=== PATIENT | male | born 1930 | race Caucasian/White ===

== ENCOUNTER 2019-01-05 10:58 | Inpatient (IN) | payer MEDICARE, OTHER ==
[~2019-01-05] VITALS: Ht 172.7 cm; Wt 85.4 kg
[2019-01-05 11:48] LABS: BASOPHILS ABSOLUTE AUTO 0.02 K/mm3 (0.00-0.23); BASOPHILS PERCENT AUTO 0 % (0-2); EOSINOPHILS ABSOLUTE AUTO 0.06 K/mm3 (0.00-0.68); EOSINOPHILS PERCENT AUTO 1 % (0-6); Hematocrit 29.2 % (37.0-53.0); Hemoglobin 8.7 g/dL (13.5-17.5); IMMATURE GRAN ABSOLUTE AUTO 0.03 K/mm3 (0.00-0.10); IMMATURE GRAN PERCENT AUTO 1 % (0-1); LYMPHOCYTES ABSOLUTE AUTO 1.54 K/mm3 (0.84-5.20); LYMPHOCYTES PERCENT AUTO 24 % (21-46); MONOCYTES ABSOLUTE AUTO 0.43 K/mm3 (0.16-1.47); MONOCYTES PERCENT AUTO 7 % (4-13); Mean Corpuscular HGB 25.1 pg (26.0-34.0); Mean Corpuscular HGB Conc 29.8 g/dL (31.5-36.5); Mean Corpuscular Volume 84 fL (80-100); Mean Platelet Volume 10.1 fL (9.1-12.4); NEUTROPHILS ABSOLUTE AUTO 4.34 K/mm3 (1.96-9.15); NEUTROPHILS PERCENT AUTO 68 % (41-73); Platelet Count 227 K/mm3 (150-400); RDW Coefficient Variation 16.2 % (11.7-14.2); RDW Standard Deviation 49.3 fL (35.1-46.3); Red Blood Cell Count 3.46 M/mm3 (4.30-5.90); White Blood Cell Count 6.42 K/mm3 (4.00-11.30)
[2019-01-05 12:11] LABS: Alanine Aminotransfer (ALT/SGP 14 U/L (12-78); Albumin, Blood 3.1 g/dL (3.4-5.0); Albumin/Globulin Ratio 0.7 (0.8-1.8); Alk Phos 111 U/L (50-136); Anion Gap 6 mmol/L (6-16); Aspartate Aminotrans (AST/SGOT 15 U/L (12-37); Bilirubin, Total 0.5 mg/dL (0.1-1.0); Blood Urea Nitrogen 20 mg/dL (8-24); Bun/Creatinine Ratio 18.9 (12.0-20.0); CO2, Blood 31 mmol/L (21-32); Calcium, Blood 8.5 mg/dL (8.5-10.1); Chloride, Blood 100 mmol/L (98-108); Creatinine, Blood 1.06 mg/dL (0.60-1.20); Globulin, Blood 4.5 g/dL (2.2-4.0); Glomerular Filtration Rate >60 (60-); Glucose, Blood 189 mg/dL (70-99); Potassium, Blood 3.9 mmol/L (3.5-5.5); Sodium, Blood 137 mmol/L (136-145); Total Protein, Blood 7.6 g/dL (6.4-8.2); Troponin I 0.041 ng/mL (0.000-0.040)
[2019-01-05] MEDS ORDERED: Prinivil10 MG PO (12:12)
[2019-01-05] MEDS ORDERED: ALBU90OI INH (14:05)
[2019-01-05] MEDS ORDERED: TEMA30 PO (14:05)
[2019-01-05] MEDS ORDERED: PREG75 PO (14:06)
[2019-01-05] MEDS ORDERED: TRAM50 PO (14:06)
[2019-01-05] MEDS ORDERED: GLIP10 PO (14:06)
[2019-01-05] MEDS ORDERED: Metformin HCl1000 MG PO (14:06)
[2019-01-05] MEDS ORDERED: PRAV20 PO (14:08)
[2019-01-05] MEDS ORDERED: FURO40 PO (14:09)
[2019-01-05] MEDS ORDERED: Aspirin EC81 MG PO (14:10)
[2019-01-05] MEDS ORDERED: FLUT1DIS5 INH (14:11)
[2019-01-05 16:00] LABS: Percent Saturation 4.7 % (20.0-50.0)
[2019-01-05] MEDS ORDERED: ASCO500 PO (17:11)
[2019-01-05] MEDS ORDERED: LISI5 PO (17:12)
--- NOTE | 2019-01-05 18:45 | NUR ---
ADMISSION NOTE PATIENT ARRIVED TO FLOOR AT 1630, AMBULATED TO BED. PT IS ALERT AND ORIENTED. HE HAS +3 EDEMA TO BILAT LEGS, REDNESS HAS IMPROVED. SPO2 WAS 80 WITH RA ON ARRIVAL, 3L 02 APPLIED. SPO2 IMPROVED TO 92%. PT HAS CRACKLES IN BILAT LOWER LUNG LOBES AND A SLIGHT RUB IN BILAT UPPER LOBES. PT WEARS CPAP AT NIGHT, ORDER PLACED, RT CALLED, WILL BRING CPAP AND CONT. PULSE OX TO ROOM. PT ON TELE MONITOR, HR 95 NSR. ATTEMPTED TO CONSULT CARDIAC SERVICE, DR PASTRANA STATED TO CALL [employer]IONAL ACCOUNT EXECUTIVE SPRING COILER HAND TOMORROW. LASIX GIVEN IV, PT VOIDING WELL.
[2019-01-05 20:34] LABS: Troponin I 0.029 ng/mL (0.000-0.040)
--- NOTE | 2019-01-06 04:13 | NUR ---
SHIFT SUMMARY CONT PULSE OX IS IN PLACE. PT SATS DROP QUICKLY WHEN NOT ON O2, REACHING LOW 78%. PT INSTRUCTED THAT O2 MUST BE WORN AT ALL TIMES AND PT HAS BEEN COMPLIANT WITH IT SINCE. PT ON 3L VIA NC WHEN AWAKE AND CPAP AT NIGHT. >92% ON 3L VIA NC. LS DIM c CRACKLES IN BASES. A&O X 4, INDEPENDENT IN RM. PT DIURESING WELL, OUTPUT OF 3L SO FAR. CBG AT 329 TONIGHT, ADMINISTERED 6 UNITS HUMALOG PER LOW SS. PT RESTING IN BED AT THIS TIME, CALL LT IN REACH. ABLE TO USE CALL LT APPROP AND MAKE NEEDS KNOWN. WILL CONT TO MONITOR AND PROVIDE CARE UNTIL PRESUMED BY ONCOMING RN.
[2019-01-06 05:16] LABS: Hemoglobin 8.5 g/dL (13.5-17.5); Mean Corpuscular HGB 25.3 pg (26.0-34.0); Mean Corpuscular HGB Conc 30.4 g/dL (31.5-36.5); Mean Corpuscular Volume 83 fL (80-100); Mean Platelet Volume 10.1 fL (9.1-12.4); Platelet Count 221 K/mm3 (150-400); RDW Standard Deviation 49.1 fL (35.1-46.3); Red Blood Cell Count 3.36 M/mm3 (4.30-5.90); White Blood Cell Count 3.07 K/mm3 (4.00-11.30)
[2019-01-06 05:37] LABS: Alanine Aminotransfer (ALT/SGP 15 U/L (12-78); Albumin, Blood 2.8 g/dL (3.4-5.0); Albumin/Globulin Ratio 0.6 (0.8-1.8); Alk Phos 105 U/L (50-136); Anion Gap 7 mmol/L (6-16); Aspartate Aminotrans (AST/SGOT 12 U/L (12-37); Bilirubin, Total 0.3 mg/dL (0.1-1.0); Blood Urea Nitrogen 24 mg/dL (8-24); Bun/Creatinine Ratio 23.5 (12.0-20.0); CO2, Blood 31 mmol/L (21-32); Calcium, Blood 8.2 mg/dL (8.5-10.1); Chloride, Blood 100 mmol/L (98-108); Creatinine, Blood 1.02 mg/dL (0.60-1.20); Globulin, Blood 4.5 g/dL (2.2-4.0); Glomerular Filtration Rate >60 (60-); Glucose, Blood 275 mg/dL (70-99); Potassium, Blood 3.8 mmol/L (3.5-5.5); Sodium, Blood 138 mmol/L (136-145); Total Protein, Blood 7.3 g/dL (6.4-8.2)
[2019-01-06 05:40] LABS: Troponin I 0.035 ng/mL (0.000-0.040)
--- NOTE | 2019-01-06 10:13 | NUR ---
Echocardiogram completed.
--- NOTE | 2019-01-06 12:38 | NUR ---
PT TO ANGIOGRAM & TRANSFER PATIENT TAKEN TO MILL OPERATOR HELPER VIA WHEELCHAIR, PROCEDURE CONSENT AND BLOOD CONSENT SIGNED AND IN CHART. PATIENT EXPRESSED DESIRE TO BE DNR, HOSPITALIST NOTIFIED AND CONFIRMED. CODE STATUS CHANGED IN CHART, PURPLE DNR BAND APPLIED. FAMILY PHONE NUMBERS: TAMANNA: [phone] DTR EDITA: [phone] DTR FLORES: [phone] SON GENE: [phone]
--- NOTE | 2019-01-06 14:07 | NUR ---
PT ARRIVAL. PT ARRIVED TO UNIT VIA BED. PT'S VS STABLE. GROIN SITE STABLE, NO BLEEDING IS NOTED AT THIS TIME. PER REPORT PT HAD HEMATOMA IN CARDIOGRAPHER, AREA DISTAL TO THE DRESSING IS SLIGHTLY SWOLLEN AND TENDER TO PALP. PT'S PEDAL PULSES HAD TO BE FOUND WITH DOPPLER. RIGHT PEDAL PULSE IS WEAKER THAN THE LEFT. WILL CONTINUE TO MONITOR.
--- NOTE | 2019-01-06 16:21 | NUR ---
ASSUMED CARE ASSUMED CARE OF PT APPROX 1610. RECVIED REPROT ON PT. NOTED THAT ASSESSMENT FINDINGS REMAIN UNCHANGED. GROIN SITE REMAINS C,D,I . NO S/SX OF BLEEDING, HEMATOMA, OR SWELLING. SAT PT UP AN ADDITION 15 DEGREES. PT REPORTS BACK PAIN BETTER THAN IT WAS. WILL CONTINUE TO MONITOR.
--- NOTE | 2019-01-06 19:25 | NUR ---
SHIFT SUMMARY PT PLEASANT, COOPERATIVE AND USES CALL LIGHT APPROPRIATELY. PT REMAINS A&OX4 SINCE ASSUMED CARE. ASSESSMENT FINDINGS REMAIN UNCHANGE. PT ABLE TO EAT DINNER AND TOLERATED WELL. GROIN SITE REMAINS C,D,I WITH NO S/SX OF BLEEDING, HEMATOMA OR SWELLING. PT HAD FAMILY AT BEDSDIE INTERMITENTLY. BED IN LOW POSITION, CALL LIGHT IN REACH AND PT DENIES ANY NEEDS AT THIS TIME. WILL CONTINUE TO MONITOR UNTIL HANDOFF TO NIGHTSHIFT RN.
--- NOTE | 2019-01-06 21:50 | NUR ---
PATIENT OXYGEN SATURATIONS DROPPING ON 2L TO 86-88% WHILE PATIENT FALLING ASLEEP. PLACE ON CPAP PATIENT OXYGEN SATURATION DROPPED TO 80%. PATIENT HAS NO OXYGEN BLEED IN. PLACED ON 3L OF OXYGEN PER NC AND CALLED RT WHO PLACED A 3L BLEED IN ON CPAP.
--- NOTE | 2019-01-07 06:04 | NUR ---
PATIENT TAKES CPAP OFF PERIODICALLY FOR A DRINK OF WATER AND FORGETS TO PUT IT BACK ON DROPPING OXYGEN SATURATIONS IN THE LOW 80S. PATIENT PLEASANT DENIES ANY PAIN OTHER THAN CHRONIC PAIN IN LEGS. RIGHT GROINING INTACT AND SOFT.
[2019-01-07 08:14] LABS: BASOPHILS ABSOLUTE AUTO 0.01 K/mm3 (0.00-0.23); BASOPHILS PERCENT AUTO 0 % (0-2); EOSINOPHILS PERCENT AUTO 0 % (0-6); Hematocrit 26.8 % (37.0-53.0); Hemoglobin 8.2 g/dL (13.5-17.5); IMMATURE GRAN ABSOLUTE AUTO 0.08 K/mm3 (0.00-0.10); IMMATURE GRAN PERCENT AUTO 1 % (0-1); LYMPHOCYTES ABSOLUTE AUTO 1.18 K/mm3 (0.84-5.20); LYMPHOCYTES PERCENT AUTO 9 % (21-46); MONOCYTES ABSOLUTE AUTO 0.38 K/mm3 (0.16-1.47); MONOCYTES PERCENT AUTO 3 % (4-13); Mean Corpuscular HGB 25.5 pg (26.0-34.0); Mean Corpuscular HGB Conc 30.6 g/dL (31.5-36.5); Mean Corpuscular Volume 84 fL (80-100); NEUTROPHILS PERCENT AUTO 88 % (41-73); Platelet Count 224 K/mm3 (150-400); RDW Coefficient Variation 16.1 % (11.7-14.2); RDW Standard Deviation 49.3 fL (35.1-46.3); Red Blood Cell Count 3.21 M/mm3 (4.30-5.90); White Blood Cell Count 13.95 K/mm3 (4.00-11.30)
--- NOTE | 2019-01-07 08:29 | NUR ---
ASSUMED CARE: REPORT RECEIVED FROM JAZLYN Matta RN. ASSUMED CARE OF THIS PT AT APPROX 0700. ON ASSESSMENT, THE PT IS A&O, PLEASANT & COOPERATIVE W/ CARE. HE DENIES PAIN OR NUMBNESS/TINGLING OF EXTREMITIES THIS AM. O2 BEING TITRATED DOWN W/ IMPROVED SATS WHILE AWAKE. PT CURRENTLY ON 3L NC W/ O2 SATS 97%. WILL CONTINUE TO MONITOR & UPDATE NEEDED.
[2019-01-07 08:30] LABS: Anion Gap 4 mmol/L (6-16); Blood Urea Nitrogen 31 mg/dL (8-24); Bun/Creatinine Ratio 31.3 (12.0-20.0); CO2, Blood 33 mmol/L (21-32); Chloride, Blood 101 mmol/L (98-108); Creatinine, Blood 0.99 mg/dL (0.60-1.20); Glomerular Filtration Rate >60 (60-); Glucose, Blood 251 mg/dL (70-99); Potassium, Blood 4.1 mmol/L (3.5-5.5); Sodium, Blood 138 mmol/L (136-145)
--- NOTE | 2019-01-07 09:33 | NUR ---
DR. MATHEWS: PROVIDER AT BEDSIDE TO SEE PT. IT IS DISCUSSED THAT PT's O2 REQUIREMENTS INCREASED UP TO 5L BLEED-IN TO CPAP DURING THE NIGHT. PT NORMALLY REQUIRES NO O2 AT HOME. OVERNIGHT SLEEP STUDY ORDERED. PROVIDER WOULD ALSO LIKE DR PASTRANA TO SEE THE PT TODAY SO THAT HE MAY BE D/C'd TOMORROW & SETUP W/ DR PASTRANA FOR FOLLOW-UP.
--- NOTE | 2019-01-07 14:30 | NUR ---
DR. MATHEWS: CALL TO PROVIDER, SHE HAS BEEN UPDATED ON PT's STATUS & DR MAZA's VISIT. REQUEST TO CHANGE PT TO MED FLOOR STATUS, PROVIDER IS AGREEABLE & STS TELE IS NOT NECESSARY. ORDERS PLACED.
--- NOTE | 2019-01-07 15:22 | NUR ---
TRANSFER TO MED FLOOR: REPORT HAS BEEN GIVEN TO ANNELISE Hudson RN TO ASSUME CARE. PT IS CURRENTLY COMPLETING HOME O2 EVAL & THEN MAY BE TRANSFERRED TO 342.
--- NOTE | 2019-01-07 17:27 | NUR ---
Met with patient after pulmonolgy consult to answer questions. Pretty demonstrates understanding of risks and plan of care. Review of possible plans and patient wishes for recusistation and care. He states hea and his have AD at home not sure where they are but need to update them. Pt states he does not want to be prolonged or saved. He relays a near experience during a surgery. where he tried to leave and was told to go back he had more to do. He states he can't believe he lived this long. Acknoleged his incredible expeience and great attititude about life and his commuication with his family about his wishs. As were reviewed the polst he decided that if he has treatment and for his family he wants cpr and ventilator time if he needs . he states family will be able to make the decision to stop care. At this time he feels this is best. If the paln changes he will make himself DNR.
--- NOTE | 2019-01-07 18:13 | NUR ---
SHIFT SUMMARY: PATIENT TRANSFER FROM PCU-07 THIS SHIFT. PT A&O; CALM AND COOPERATIVE WITH CARE. NO C/O PAIN SINCE ARRIVAL ON MEDICAL. HOME O2 EVAL IN PCU; PT WILL REQUIRE O2 @ 2L AT D/C. 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 RACHELL.
--- NOTE | 2019-01-08 05:08 | NUR ---
SHIFT SUMMARY: 88 Y/O MALE RESTED COMFORTABLY ALL SHIFT, SLEEP STUDY COMPLETED THIS SHIFT, DENIES PAIN OR NAUSEA, +3 PITTING EDEMA NOTED BILATEAL LOWER EXTREMITIES, DENIES DYSPNEA WHILE WEARING O2 AT 2L/M PER NASAL CANNULA, BED ALARM APPLIED, BED LOW POSITION, CALL LIGHT AT SIDE.
[2019-01-08 06:09] LABS: Anion Gap 4 mmol/L (6-16); Blood Urea Nitrogen 36 mg/dL (8-24); Bun/Creatinine Ratio 36.5 (12.0-20.0); CO2, Blood 32 mmol/L (21-32); Calcium, Blood 7.9 mg/dL (8.5-10.1); Chloride, Blood 99 mmol/L (98-108); Creatinine, Blood 0.99 mg/dL (0.60-1.20); Glomerular Filtration Rate >60 (60-); Glucose, Blood 246 mg/dL (70-99); Potassium, Blood 4.1 mmol/L (3.5-5.5); Sodium, Blood 135 mmol/L (136-145)
[2019-01-08] MEDS ORDERED: CARV6.25 PO (10:33)
[2019-01-08] MEDS ORDERED: PRED10 PO (10:41)
--- NOTE | 2019-01-08 10:49 | NUR ---
HOME O2 ORDERS FAXED TO [facility] [employer]RICAL ENGINEER NOTIFIED OF ORDERS.
--- NOTE | 2019-01-08 13:11 | NUR ---
PATIENT DISCHARGE: PATIENT DISCHARGED TO HOME/ XFR TO HOME HEALTH THIS SHIFT. MEDICATION RECONCILIATION COMPLETED; MED LIST FAXED TO [facility] ON [address]. DISCHARGE EDUCATION COMPLETED WITH PATIENT. PATIENT TRANSPORTED TO EXIT BY [facility] STAFF WITH WHEELCHAIR AT 1311. PATIENT DEPARTED [facility] VIA PRIVATE AUTO.
--- NOTE | 2019-01-08 15:17 | NUR ---
pt discharged today polst processed. pt high risk for readmission will follow up.
--- NOTE | 2019-01-09 10:53 | NUR ---
DR.KEVIN WASSERMAN, , AND 'S OFFICES ALL STATED THEY WILL CALL THE PATIENT TO SET UP APPOINTMENTS WITHIN ONE WEEK OF DISCHARGE.
--- NOTE | 2019-01-09 19:27 | NUR ---
IMM MAILED TO PATIENT
== END 2019-01-08 13:11 | disposition home health service (06) | DRG 286 ==
LOC: ER 10:58 → MEDS 10:59 → PCU 01-06 12:51 → MEDS 01-07 15:40 → ENPENDDIS 01-08 09:34 → MEDS 01-08 13:11
PROVIDERS: Emergency Medicine; Internal Medicine; Internal Medicine Critical Care Medicine; ADMIT Internal Medicine
PROC: 4A023N8 Measurement of Cardiac Sampling and Pressure, Bilateral, Percutaneous Approach (ICD-10-PCS; principal; 2019-01-06)
PROC: B201YZZ Plain Radiography of Multiple Coronary Arteries using Other Contrast (ICD-10-PCS; 2019-01-06)
PROC: B205YZZ Plain Radiography of Left Heart using Other Contrast (ICD-10-PCS; 2019-01-06)
DX: I50.33 Acute on chronic diastolic (congestive) heart failure (principal); J96.01 Acute respiratory failure with hypoxia; I27.81 Cor pulmonale (chronic); I35.0 Nonrheumatic aortic (valve) stenosis; I25.10 Atherosclerotic heart disease of native coronary artery without angina pectoris; I27.20 Pulmonary hypertension, unspecified; J84.10 Pulmonary fibrosis, unspecified; G47.33 Obstructive sleep apnea (adult) (pediatric); G25.81 Restless legs syndrome; E78.5 Hyperlipidemia, unspecified; E11.9 Type 2 diabetes mellitus without complications; G89.29 Other chronic pain; M54.9 Dorsalgia, unspecified; F17.210 Nicotine dependence, cigarettes, uncomplicated; M19.90 Unspecified osteoarthritis, unspecified site; D64.9 Anemia, unspecified; Z79.84 Long term (current) use of oral hypoglycemic drugs; Z79.82 Long term (current) use of aspirin; Z79.51 Long term (current) use of inhaled steroids; Z79.899 Other long term (current) drug therapy
CPT/HCPCS: 36415; 71046; 80048; 80053; 82550; 82728; 82947; 83540; 83550; 83735; 83880; 84484; 85025; 85027; 93005; 93010; 93306; 93460; 94640; 94660; 94760; 94761; 94762; 96372; 96374; 96375; 96376; 99285-25; C1751; C1760; C1769; C1894; G0378; J1644; J1650; J1940; J2930; J7030; J7040; J7512; Q9967

== ENCOUNTER 2019-02-01 23:11 | Observation (INO) | payer MEDICARE, OTHER ==
[~2019-02-01] VITALS: Ht 172.7 cm; Wt 78.9 kg
[~2019-02-01 23:11] MED LIST: ALBU90OI INH; ASCO500 PO; Aspirin EC81 MG PO; CARV6.25 PO; FLUT1DIS5 INH; FURO40 PO; GLIP10 PO; LISI5 PO; Metformin HCl1000 MG PO; PRAV20 PO; PRED10 PO; PREG75 PO; Prinivil10 MG PO; TEMA30 PO; TRAM50 PO
[2019-02-01 23:28] LABS: BASOPHILS ABSOLUTE AUTO 0.02 K/mm3 (0.00-0.23); BASOPHILS PERCENT AUTO 0 % (0-2); EOSINOPHILS ABSOLUTE AUTO 0.16 K/mm3 (0.00-0.68); EOSINOPHILS PERCENT AUTO 2 % (0-6); Hematocrit 27.1 % (37.0-53.0); Hemoglobin 8.1 g/dL (13.5-17.5); IMMATURE GRAN ABSOLUTE AUTO 0.02 K/mm3 (0.00-0.10); IMMATURE GRAN PERCENT AUTO 0 % (0-1); LYMPHOCYTES ABSOLUTE AUTO 1.31 K/mm3 (0.84-5.20); LYMPHOCYTES PERCENT AUTO 15 % (21-46); MONOCYTES ABSOLUTE AUTO 0.63 K/mm3 (0.16-1.47); MONOCYTES PERCENT AUTO 7 % (4-13); Mean Corpuscular HGB 25.3 pg (26.0-34.0); Mean Corpuscular HGB Conc 29.9 g/dL (31.5-36.5); Mean Corpuscular Volume 85 fL (80-100); Mean Platelet Volume 9.6 fL (9.1-12.4); NEUTROPHILS ABSOLUTE AUTO 6.76 K/mm3 (1.96-9.15); NEUTROPHILS PERCENT AUTO 76 % (41-73); Platelet Count 241 K/mm3 (150-400); RDW Coefficient Variation 18.6 % (11.7-14.2); RDW Standard Deviation 57.3 fL (35.1-46.3)
[2019-02-01 23:30] LABS: Calcium, Ionized (POC) 1.17 mmol/L (1.10-1.46); Chloride (POC) 100 mmol/L (98-108); Glucose (ISTAT POC) 143 mg/dL (70-99); Hemoglobin (POC) 8.5 g/dL (13.5-17.5); Potassium (POC) 3.5 mmol/L (3.5-5.5); Sodium (POC) 135 mmol/L (135-148); Total CO2 (POC) 26 mmol/L (21-32)
[2019-02-01 23:51] LABS: Alanine Aminotransfer (ALT/SGP 15 U/L (12-78); Albumin, Blood 3.1 g/dL (3.4-5.0); Albumin/Globulin Ratio 0.9 (0.8-1.8); Alk Phos 82 U/L (50-136); Anion Gap 10 mmol/L (6-16); Aspartate Aminotrans (AST/SGOT 18 U/L (12-37); Bilirubin, Total 0.3 mg/dL (0.1-1.0); Blood Urea Nitrogen 14 mg/dL (8-24); Bun/Creatinine Ratio 16.2 (12.0-20.0); CO2, Blood 25 mmol/L (21-32); Calcium, Blood 8.5 mg/dL (8.5-10.1); Chloride, Blood 104 mmol/L (98-108); Creatinine, Blood 0.86 mg/dL (0.60-1.20); Globulin, Blood 3.6 g/dL (2.2-4.0); Glomerular Filtration Rate >60 (60-); Glucose, Blood 135 mg/dL (70-99); Potassium, Blood 3.6 mmol/L (3.5-5.5); Sodium, Blood 139 mmol/L (136-145); Total Protein, Blood 6.7 g/dL (6.4-8.2); Troponin I <0.015 ng/mL (0.000-0.040)
--- NOTE | 2019-02-02 06:42 | NUR ---
SHIFT SUMMARY PT WAS A NEW ADMIT THIS AM, ARRIVING ONT HE FLOOR AT 0410. HE WAS ADMITTED FOR HYPOGLYCEMIA AFTER HE BEGAN HAVING STROKE-LIKE SYMPTOMS AT HOME. PT IS A&O X 4 AT THIS TIME, NEUROLOGICALLY INTACT WITH NO COMPLAINTS OF NEURO DEFICITS. HE IS CURRENTLY ON Q2H CBG. HIS CBG PRIOR TO ADMISSION WAS 74, AND INCREASED TO 84 2 HOURS LATER. PT IS ON CONTINUOUS D5+1/2 NS. VITAL SIGNS STABLE. NO OTHER ACUTE CHANGES IN PT CONDITION NOTED SINCE ADMISSION. WILL CONTINUE TO MONITOR AND TREAT UNTIL HAND OFF TO DAY SHIFT RN.
[2019-02-02 14:06] LABS: Stool Occult Blood Guaiac 1 Pos (Neg)
--- NOTE | 2019-02-02 17:37 | NUR ---
SHIFT SUMMARY: PT IS A/O X 4 WITH NO C/O PAIN OR COMPLAINTS AT ALL. HE TRANSFERS INDEPENDENTLY TO THE TOILET AND CALLS FOR HELP WHEN NEEDED. PT WAS SCHEDULED TO DC TODAY UNTIL HIS OCCULT STOOL SAMPLE CAME BACK POSITIVE. DR POWELL WAS NOTIFIED ALONG WITH PT WHO DECIDED HE WOULD RATHER RECEIVE THE GI CONSULT IN PATIENT INSTEAD OF OUT. GI CONSULT WAS CALLED IN TO DR ELLIOTT PER DR POWELL AND DR ELLIOTT SAID HE WOULD DO A GI SCOPE IN THE AM AND THE PT IS TO BE NPO AFTER 2 PM, PT IS AWARE OF THIS AND THE COMMUNICATION BOARD IN ROOM WAS UPDATED. PT IS RESTING IN BED WATCHING TV.
--- NOTE | 2019-02-03 04:21 | NUR ---
SHIFT SUMMARY PT IS ALERT, ORIENTED AND INDEPENDENT. PT REFUSED THE SCDS THIS SHIFT, DESPITE RN EDUCATION. PT WORE 2L NC IS HIS BASELINE THIS SHIFT. PT REFUSED TO WEAR BIPAP, IT WAS "MAKING HIM COUGH". NO COMPLAINTS OF SOB NOTED THIS SHIFT. PT RECIEVED TYLENOL FOR PAIN IN HIS LEGS BILATERALLY TO GOOD EFFECT. NO OTHER COMPLAINTS AT THIS TIME. VSS. BRONWYN STRONG TO MONITOR.
[2019-02-03 05:00] LABS: Hemoglobin 7.7 g/dL (13.5-17.5)
[2019-02-03 05:23] LABS: Anion Gap 5 mmol/L (6-16); Blood Urea Nitrogen 22 mg/dL (8-24); Bun/Creatinine Ratio 22.3 (12.0-20.0); CO2, Blood 26 mmol/L (21-32); Calcium, Blood 8.3 mg/dL (8.5-10.1); Chloride, Blood 107 mmol/L (98-108); Creatinine, Blood 0.99 mg/dL (0.60-1.20); Glomerular Filtration Rate >60 (60-); Glucose, Blood 172 mg/dL (70-99); Potassium, Blood 4.4 mmol/L (3.5-5.5); Sodium, Blood 138 mmol/L (136-145)
--- NOTE | 2019-02-03 09:53 | NUR ---
"DAY SURGERY RN | HANDOFF TO JOE GARCIA"
--- NOTE | 2019-02-03 10:11 | NUR ---
02/03/19 1011 Lefty Franklin Bite Block PlacedPatient to ENDO 1History, Chart, Medications and Allergies reviewed before start of procedure.MONITOR INTACT WITH CONTINUOUS PULSE OXIMETRY AND INTERMITTENT BP.O2 VIA N/C INTACT THROUGHOUT SEDATION/PROCEDURE.See Anesthesia record.
[2019-02-03] MEDS ORDERED: IRON150C PO (16:29)
[2019-02-03] MEDS ORDERED: PANT40 PO (16:30)
--- NOTE | 2019-02-03 17:07 | NUR ---
PATIENT DISCHARGE: PATIENT DISCHARGED TO HOME THIS SHIFT. MEDICATION RECONCILIATION COMPLETED; MED LIST FAXED TO [facility] [address]. DISCHARGE EDUCATION COMPLETED WITH PATIENT. PATIENT TRANSPORTED TO EXIT BY [facility] STAFF WITH WHEELCHAIR AT 1705. PATIENT DEPARTED [facility] VIA PRIVATE AUTO.
== END 2019-02-03 17:10 | disposition home or self-care (01) ==
LOC: DELPENDDIS → ER 23:11 → MEDS 23:12 → ENPENDDIS 02-02 13:55 → MEDS 02-03 17:10
PROVIDERS: Emergency Medicine; Internal Medicine; Internal Medicine Gastroenterology; ADMIT Family Medicine
PROC: 0DJ08ZZ Inspection of Upper Intestinal Tract, Via Natural or Artificial Opening Endoscopic (ICD-10-PCS; principal; 2019-02-03 11:00)
DX: K25.9 Gastric ulcer, unspecified as acute or chronic, without hemorrhage or perforation (principal); K26.9 Duodenal ulcer, unspecified as acute or chronic, without hemorrhage or perforation; E11.649 Type 2 diabetes mellitus with hypoglycemia without coma; D50.9 Iron deficiency anemia, unspecified; I11.0 Hypertensive heart disease with heart failure; I50.9 Heart failure, unspecified; I25.10 Atherosclerotic heart disease of native coronary artery without angina pectoris; J84.9 Interstitial pulmonary disease, unspecified; I35.0 Nonrheumatic aortic (valve) stenosis; I27.81 Cor pulmonale (chronic); J44.9 Chronic obstructive pulmonary disease, unspecified; Z99.81 Dependence on supplemental oxygen; Z87.891 Personal history of nicotine dependence; Z79.899 Other long term (current) drug therapy; Z79.51 Long term (current) use of inhaled steroids; Z79.84 Long term (current) use of oral hypoglycemic drugs; Z79.82 Long term (current) use of aspirin
CPT/HCPCS: 36415; 80047; 80048; 80053; 82272; 82607; 82728; 82746; 82947; 83036; 83540; 83550; 84484; 85014; 85018; 85025; 93005; 93010; 94640; 94660; 94762; 96360; 96361; 96372; 99285-25; A9270; C9113; G0378; J1650; J2704; J7042; J7120

== ENCOUNTER 2019-05-19 18:01 | Inpatient (IN) | payer OTHER, MEDICARE ==
[~2019-05-19] VITALS: Ht 172.7 cm; Wt 78.2 kg
[~2019-05-19 18:01] MED LIST changes: +Glucophage1000 MG PO; +IRON150C PO; +LOW DOSE ASPIRI81 MG PO; +PANT40 PO; +Vitamin D2000 UNIT PO
[2019-05-19 18:45] LABS: BASOPHILS ABSOLUTE AUTO 0.02 K/mm3 (0.00-0.23); BASOPHILS PERCENT AUTO 0 % (0-2); EOSINOPHILS ABSOLUTE AUTO 0.05 K/mm3 (0.00-0.68); EOSINOPHILS PERCENT AUTO 0 % (0-6); Hematocrit 23.7 % (37.0-53.0); Hemoglobin 7.5 g/dL (13.5-17.5); IMMATURE GRAN ABSOLUTE AUTO 0.06 K/mm3 (0.00-0.10); IMMATURE GRAN PERCENT AUTO 1 % (0-1); LYMPHOCYTES ABSOLUTE AUTO 1.61 K/mm3 (0.84-5.20); LYMPHOCYTES PERCENT AUTO 14 % (21-46); MONOCYTES ABSOLUTE AUTO 1.13 K/mm3 (0.16-1.47); MONOCYTES PERCENT AUTO 10 % (4-13); Mean Corpuscular HGB 28.5 pg (26.0-34.0); Mean Corpuscular HGB Conc 31.6 g/dL (31.5-36.5); Mean Corpuscular Volume 90 fL (80-100); Mean Platelet Volume 9.2 fL (9.1-12.4); NEUTROPHILS ABSOLUTE AUTO 8.85 K/mm3 (1.96-9.15); NEUTROPHILS PERCENT AUTO 76 % (41-73); Platelet Count 309 K/mm3 (150-400); RDW Coefficient Variation 16.4 % (11.7-14.2); RDW Standard Deviation 53.8 fL (35.1-46.3); Red Blood Cell Count 2.63 M/mm3 (4.30-5.90); White Blood Cell Count 11.72 K/mm3 (4.00-11.30)
[2019-05-19 19:07] LABS: Alanine Aminotransfer (ALT/SGP 20 U/L (12-78); Albumin, Blood 2.7 g/dL (3.4-5.0); Albumin/Globulin Ratio 0.6 (0.8-1.8); Alk Phos 95 U/L (50-136); Anion Gap 7 mmol/L (6-16); Aspartate Aminotrans (AST/SGOT 19 U/L (12-37); Bilirubin, Total 0.5 mg/dL (0.1-1.0); Blood Urea Nitrogen 19 mg/dL (8-24); CO2, Blood 26 mmol/L (21-32); Calcium, Blood 8.3 mg/dL (8.5-10.1); Chloride, Blood 99 mmol/L (98-108); Creatinine, Blood 1.12 mg/dL (0.60-1.20); Globulin, Blood 4.6 g/dL (2.2-4.0); Glomerular Filtration Rate >60 (60-); Glucose, Blood 171 mg/dL (70-99); Sodium, Blood 132 mmol/L (136-145); Total Protein, Blood 7.3 g/dL (6.4-8.2)
[2019-05-19 19:21] LABS: Troponin I 0.742 ng/mL (0.000-0.040)
[2019-05-19] MEDS ORDERED: LISI5 PO (20:13)
[2019-05-19] MEDS ORDERED: FURO20 PO (20:15)
--- NOTE | 2019-05-20 00:21 | NUR ---
TRANSFER NOTE PT TRANSFERED TO MED FLOOR VIA GURNEY. DID VERIFY WITH ER THAT AUTO ELECTRICIAN DID STILL WANT PT TO TRANSFER TO MED FLOOR AFTER I NOTICED TROPONIN LAB INCREASED FROM 0.742 TO 0.854. ER VERIFIED MED FLOOR IS INTENDED TRANSFER. PT ORIENTED TO UNIT. 3 LPM O2 VIA NC. TELE IN PLACE AND MONITORING. RT IS MANAGING CONT PULSE OX AND WILL SET UP. DAILY STANDING WT'S AND WT ON ADMIT. 2000 ML/DAY FLUID RESTRICTION. CALL BUTTON WITHIN REACH.
[2019-05-20] MEDS ORDERED: OMEP20ER PO (02:51)
--- NOTE | 2019-05-20 04:05 | NUR ---
SHIFT SUMMARY ADMITTED FROM ER THIS SHIFT FOR ACUTE/CHRONIC RESPIRATORY FAILURE, LLL PNEUMONIA. TELEMETRY IS MONITORING PER PCU: THEY STATE NSR W/BBB 90'S, PLUS PVC'S. LIVES @ [facility] HOME W/SPOUSE. ADA DIET. LOW SS. AC CHEMSTICKS. 3 LPM O2 AT HOME, 4 LPM HERE. DAILY STANDING WEIGHTS NEEDED. 2000 ML/DAY FLUID RESTRICTION. [facility] LABS 0.742 ON ARRIVAL, 0.854 BEFORE COMING TO MEDICAL FLOOR. CONTINUOUS PULSE OXIMETRY IN PLACE. NOTED CHRONIC ANEMIA IN CHARTS. A&O X4, ABLE TO MAKE NEEDS KNOWN.
[2019-05-20 05:06] LABS: BASOPHILS ABSOLUTE AUTO 0.02 K/mm3 (0.00-0.23); BASOPHILS PERCENT AUTO 0 % (0-2); EOSINOPHILS PERCENT AUTO 0 % (0-6); Hematocrit 22.2 % (37.0-53.0); IMMATURE GRAN ABSOLUTE AUTO 0.05 K/mm3 (0.00-0.10); IMMATURE GRAN PERCENT AUTO 0 % (0-1); LYMPHOCYTES ABSOLUTE AUTO 0.51 K/mm3 (0.84-5.20); LYMPHOCYTES PERCENT AUTO 4 % (21-46); MONOCYTES ABSOLUTE AUTO 0.17 K/mm3 (0.16-1.47); MONOCYTES PERCENT AUTO 1 % (4-13); Mean Corpuscular HGB 28.3 pg (26.0-34.0); Mean Corpuscular HGB Conc 31.5 g/dL (31.5-36.5); Mean Corpuscular Volume 90 fL (80-100); Mean Platelet Volume 9.4 fL (9.1-12.4); NEUTROPHILS ABSOLUTE AUTO 12.16 K/mm3 (1.96-9.15); NEUTROPHILS PERCENT AUTO 94 % (41-73); Platelet Count 308 K/mm3 (150-400); RDW Coefficient Variation 16.2 % (11.7-14.2); RDW Standard Deviation 53.1 fL (35.1-46.3); Red Blood Cell Count 2.47 M/mm3 (4.30-5.90); White Blood Cell Count 12.91 K/mm3 (4.00-11.30)
[2019-05-20 05:43] LABS: Anion Gap 10 mmol/L (6-16); Blood Urea Nitrogen 19 mg/dL (8-24); Bun/Creatinine Ratio 19.7 (12.0-20.0); CO2, Blood 23 mmol/L (21-32); Calcium, Blood 8.3 mg/dL (8.5-10.1); Chloride, Blood 100 mmol/L (98-108); Creatinine, Blood 0.97 mg/dL (0.60-1.20); Glomerular Filtration Rate >60 (60-); Glucose, Blood 230 mg/dL (70-99); Potassium, Blood 4.2 mmol/L (3.5-5.5); Sodium, Blood 133 mmol/L (136-145)
--- NOTE | 2019-05-20 15:55 | NUR ---
SHIFT SUMMARY: PT IS A/O X 4 WITH NO C/O PAIN. PT IS PLEASNAT AND COOPERATIVE WITH CARE. HE IS A X 1 STAND BY ASSIST TO TRANSFER AND WALK TO THE TOILET. HE ALSO USES THE URINAL AT TIMES. PT LUNGS ARE TIGHT WITH CRACKLES AND HE HAS DYSPNEA WITH EXERTION WITH NO S/S OF RESPIRATORY DISTRESS. CBGS HAVE BEEN ELEVATED AND COVERED WITH SLIDING SCALE ORDERED. FACTORY CLERK REPORTS A RHYTHM OF SINUS TACHY @ 105. WEIGHT THIS MORNING WAS 187. PT CONTINUES TO RECEIVE RT TX AND IS ON 3 LPM VIA NASAL CANULA. HE IS UP TO THE CHAIR AND CALLS APPROPRIATELY FOR HELP WHEN NEEDED.
--- NOTE | 2019-05-21 00:43 | NUR ---
CALLED HOSPITALIST RE: GLUCOSE LEVEL OF 400. HE ORDERED 10 UNITS HUMALOG NOW AND RECHECK CHEMSTICK AT 0200 HOURS.
--- NOTE | 2019-05-21 04:53 | NUR ---
SHIFT SUMMARY DX:LLL PNEUMONIA, CHF EXACERBATION. PLAN IS DIURESE, IV ANTIBIOTICS, RT TX. S/SX:DYSPNEA W/EXERTION. 4 LPM O2 VIA NC & CPAP HERE, 3 LPM VIA NC @ HOME. 2000 ML FLUID RESTRICTION. DAILY STANDING WEIGHTS. CONTINUOUS PULSE OXIMETRY. LIVES AT [facility] WITH SPOUSE. 05/20/19: GLUCOSE 470 @ 5 PM - 10 U LANTUS & 10 U HUMALOG GIVEN (PT CHANGED TO MEDIUM SS, SOLUMEDROL DC'D) BY DAY SHIFT, GLUCOSE 419 @ 8 PM (HOSPITALIST CALLED) - 8 U HUMALOG GIVEN. 05/21/19: GLUCOSE 400 @ 0000 HRS (HOSPITALIST CALLED) - 10 U HUMALOG GIVEN. GLUCOSE 345 @ 0200 HRS. PT ASYMPTOMATIC.
[2019-05-21 05:13] LABS: Hematocrit 21.6 % (37.0-53.0); Hemoglobin 6.7 g/dL (13.5-17.5); Mean Corpuscular HGB 27.7 pg (26.0-34.0); Mean Corpuscular Volume 89 fL (80-100); Mean Platelet Volume 9.5 fL (9.1-12.4); Platelet Count 353 K/mm3 (150-400); RDW Coefficient Variation 15.9 % (11.7-14.2); Red Blood Cell Count 2.42 M/mm3 (4.30-5.90); White Blood Cell Count 17.85 K/mm3 (4.00-11.30)
[2019-05-21 05:35] LABS: Anion Gap 9 mmol/L (6-16); Blood Urea Nitrogen 29 mg/dL (8-24); Bun/Creatinine Ratio 24.6 (12.0-20.0); CO2, Blood 27 mmol/L (21-32); Calcium, Blood 8.3 mg/dL (8.5-10.1); Chloride, Blood 99 mmol/L (98-108); Creatinine, Blood 1.18 mg/dL (0.60-1.20); Glomerular Filtration Rate >60 (60-); Glucose, Blood 239 mg/dL (70-99); Potassium, Blood 3.7 mmol/L (3.5-5.5); Sodium, Blood 135 mmol/L (136-145)
--- NOTE | 2019-05-21 10:01 | NUR ---
SPOKE WITH DR. FUNES ABOUT HYPOTENSION. ORDERS TO HOLD LASIX UNTIL AFTER BLOOD TRANSFUSION COMPLETE.
[2019-05-21 10:46] LABS: Percent Saturation 4.1 % (20.0-50.0)
--- NOTE | 2019-05-21 18:20 | NUR ---
PATIENT A/OX4, UP WITH FWW AND 1 ASSIST TO RESTROOM. B/P LOW THIS AM BUT HAS COME UP THROUGHOUT THE SHIFT. 1 UNIT OF BLOOD GIVEN FOR HGB OF 6.7. LUNGS COARSE WITH FINE CRACKLES THROUGHOUT. SATS IN THE LOW 80'S ON 4LO2, PATIENT SWITCHED TO HIGH FLOW O2 AT 6L. DYSPNEIC WITH EXERTION. TEMP OF 100.5 TODAY AND TYLENOL GIVEN X1 TO TREAT. IV LASIX GIVEN X2 TODAY WITH GOOD OUTPUT. 2L FLUID RESTRICTION. 20G IV TO R FA WNL AND SL. DENIES ANY PAIN. CALM AND COOPERATIVE WITH CARE, CALLS APPROPRIATELY FOR ASSISTANCE.
[2019-05-22 04:48] LABS: Hematocrit 23.6 % (37.0-53.0); Hemoglobin 7.4 g/dL (13.5-17.5); Mean Corpuscular HGB 27.6 pg (26.0-34.0); Mean Corpuscular HGB Conc 31.4 g/dL (31.5-36.5); Mean Corpuscular Volume 88 fL (80-100); Mean Platelet Volume 10.5 fL (9.1-12.4); NRBC ABSOLUTE 0.02 K/mm3 (0.00-0.02); NRBC Auto 0.1 /100 WBC (0.0-0.2); Platelet Count 254 K/mm3 (150-400); RDW Coefficient Variation 17.3 % (11.7-14.2); RDW Standard Deviation 55.1 fL (35.1-46.3); Red Blood Cell Count 2.68 M/mm3 (4.30-5.90); White Blood Cell Count 15.55 K/mm3 (4.00-11.30)
[2019-05-22 05:06] LABS: Anion Gap 8 mmol/L (6-16); Blood Urea Nitrogen 27 mg/dL (8-24); CO2, Blood 27 mmol/L (21-32); Calcium, Blood 7.9 mg/dL (8.5-10.1); Chloride, Blood 100 mmol/L (98-108); Creatinine, Blood 1.08 mg/dL (0.60-1.20); Glomerular Filtration Rate >60 (60-); Glucose, Blood 253 mg/dL (70-99); Potassium, Blood 3.8 mmol/L (3.5-5.5); Sodium, Blood 135 mmol/L (136-145)
--- NOTE | 2019-05-22 07:15 | NUR ---
SHIFT SUMMARY PNEUMONIA/CHF EXACERBATION FULL CODE. WAS ON 6 LPM O2 THAT WAS TITRATED UP TO 10 LPM FOR EXERTION. WAS FOUND TO BE DESATURATING AND TAKING TOO LONG TO RECOVER. HOSPITALIST INFORMED. HIGH FLOW/HEATED O2 ADMIN ORDERED, RT RESPONDED. PT FOUND TO HAVE BETTER SATURATION AND QUICKER RECOVERY WITH THIS SYSTEM. PT TO DC TO [facility] WHERE HE LIVES WITH HIS WHEN READY FOR DISCHARGE.
--- NOTE | 2019-05-22 16:41 | NUR ---
Inital spiritual care note: Mr. Jonas was alone in room. He was pleasantly dismisive of prayer/spiritual support. He appears quite spry for his age, and admits he is getting "tired" of "this" recurring illness. He has a POLST signed 4 months ago. He is satisfied remaining Full Code status at this time. He says he may consider changing this if "things get worse." He denied pain, concerns, and needs. I will remain available.
--- NOTE | 2019-05-22 17:36 | NUR ---
Lou Pt visit this evening. Pt resting in bed and is on AIRVO. Pt denies pain at this time. Pt reports AIRVO is helping his SOB. As Pt continued to speak his O2 saturations would drop down to 86%. Ended visit to allow Pt to rest. Pt is agreeable for Palliative Care to F/U tomorrow for therapeutic visit. Spoke with bedside JOSE Stone and discussed case. Repeat Xray is scheduled for tomorrow morning. Palliative Care will remain available.
--- NOTE | 2019-05-22 17:39 | NUR ---
PT ALERT AND ORIENTED THROUGHOUT THIS SHIFT. PT ASSISTED TO STAND TO USE URINAL MULTIPLE TIMES THIS SHIFT. PT ON AIR-VO HIGH FLOW 02 THIS SHIFT, STARTING ON 60L, 50% FIO2, TITRATED DOWN TO 40% DURING THIS SHIFT. PT HAS HAD FAMILY IN THE ROOM FOR MUCH OF THIS SHIFT. PT CURRENTLY SITTING UP IN BED WATCHING TELEVISION.
--- NOTE | 2019-05-22 20:15 | NUR ---
DEANNA IS IN BED, CONTINUOUS BIOX ALARMING, SATS DOWN IN THE 80'S. STATES HE FEELS FINE AND DOES NOT KNOW WHY THE MACHINE CONTINUOUS TO ALARM. STATES THE MACHING MUST BE MALFUNCTIONING IT HAS BEEN DOING THIS ALL DAY. CHECKED ALARM AND CONNECTION TO HIS TOE IS LOOSE. PRESSED IN AND NEW READING OF 92% CAME ON. LUNG SOUNDS ARE VERY DIMINISHED WITH SOME FINE CRACKLES IN THE BASES. AIRVO AT 10 LITERS, 50% OXYGEN. WILL MONITOR SATS AND MACHINE TO SEE IF WORKING.
--- NOTE | 2019-05-22 21:08 | NUR ---
MACHINE ALARMING AGAIN, SAYING SATS AT 85%, RT OUT SIDE OF ROOM, HAD HER CHECK THE MACHINE, SHE TURNED THE PATIENT UP TO 15LITERS OF O2 ON THE AIRVO. READING IN THE 90'S AGAIN BUT GOES UP AND DOWN ON SATS. ENCOURAGE USE OF FLUTTER VALVE, GOT HIM A NEW ONE THE OTHER ONE WAS DRIPPING OF WATER. CALL LIGHT IN REACH
--- NOTE | 2019-05-22 22:21 | NUR ---
CONTINUOUS BIOX ALARMING, TOUCHED PLUG INTO MACHINE AND THE READING WENT FROM 80% TO 95% AND HELD, THEN WHEN CORD WAS MOVED IT DROPPED BACK DOWN. TOUCHED MACHINE AND IT SHUT OFF. CALLED RT TO COME CHANGE OUT MACHINES. CHANGED PROB TO THE FINGER INSTEAD OF THE TOE.
--- NOTE | 2019-05-23 01:00 | NUR ---
DEANNA RESTING IN BED, SATS IN THE MID 90'S AND HOLDING. CALL LIGHT IN REACH.
--- NOTE | 2019-05-23 03:03 | NUR ---
DEANNA ARNOLD WAS SOUNDING, WHEN ARRIVED TO ROOM HE WAS SITTING AT SIDE OF THE BED AND SAID HE HE HAS NO AIR. SATS WERE DOWN IN THE 70'S AND DROPPING. CHECKED THE AIRVO, ALL HIS LEADS. THEY WERE ALL CONNECTED. ENCOURAGED HIM TO TAKE DEEP BREATHS THROUGH HIS NOSE. AFTER A WHILE SATS WERE NOT COMING UP. CALLED RT WHO HOOKED HIM TO THE CPAP WITH 6 LITERS BLEED THROUGH IT. SATS WERE STILL NOT COMING UP. FINGERS WERE COLD. SHE SWITCHED MACHINES, AND CORDS, THEN PLACED HIM ON THE EAR PROBE TO GET GOOD READINGS. EVENTUALLY THE SATS WERE UP TO THE LOW 90'S BUT FLUCTUATED FROM 86-93%.
--- NOTE | 2019-05-23 04:31 | NUR ---
DAILY WEIGHT DONE BY BED TODAY DUE TO HIS SATS DROPPING DURING ANY EXERTION AND HE CAN ONLY STAND FOR FEW MIN. BY THE BEDSIDE.
[2019-05-23 05:39] LABS: Hematocrit 23.3 % (37.0-53.0); Hemoglobin 7.2 g/dL (13.5-17.5); Mean Corpuscular HGB 27.3 pg (26.0-34.0); Mean Corpuscular HGB Conc 30.9 g/dL (31.5-36.5); Mean Corpuscular Volume 88 fL (80-100); Mean Platelet Volume 9.7 fL (9.1-12.4); Platelet Count 328 K/mm3 (150-400); RDW Coefficient Variation 16.8 % (11.7-14.2); RDW Standard Deviation 54.1 fL (35.1-46.3); Red Blood Cell Count 2.64 M/mm3 (4.30-5.90); White Blood Cell Count 9.97 K/mm3 (4.00-11.30)
[2019-05-23 05:59] LABS: Anion Gap 7 mmol/L (6-16); Blood Urea Nitrogen 32 mg/dL (8-24); Bun/Creatinine Ratio 28.1 (12.0-20.0); CO2, Blood 28 mmol/L (21-32); Calcium, Blood 8.1 mg/dL (8.5-10.1); Chloride, Blood 98 mmol/L (98-108); Creatinine, Blood 1.14 mg/dL (0.60-1.20); Glomerular Filtration Rate >60 (60-); Glucose, Blood 385 mg/dL (70-99); Potassium, Blood 3.9 mmol/L (3.5-5.5); Sodium, Blood 133 mmol/L (136-145)
--- NOTE | 2019-05-23 06:32 | NUR ---
SHIFT SUMMARY: DEANNA HAS HAD ROUGH NIGHT WITH CONSTANT DROPS IN HIS O2 SATS PER CONTINUOUS BIOX. THE MACHINE CONTINUED TO SOUND OFF AT START OF SHIFT, IT MALFUNCTIONED NEEDING A NEW ONE. THIS WAS REPLACED BUT HE SATS WOULD NOT STAY UP IN THE 90'S DISPITE THE CHANGE OF CORDS 3 TIMES, CHANGING OF SPOTS, AND MACHINES AGAIN. HE DID HAVE AN EPISODE OF WAKING UP FEELING LIKE HE HAD NO AIR, SATS WERE DOWN IN THE 60'S DUE TO HIS MOUTH BREATHING WHILE SLEEPING. HE WAS THEN PLACED ON CPAP WITH 10 LITERS BLEED INTO IT. SATS STILL DID NOT COME UP, SO WE CHANGED TO A EAR PROB DUE TO NEUROPATHY RT AND I THOUGHT HIS CIRCULATION COULD BE MAKING IT HARD FOR PROB TO READ. PLACED ON THE EAR, SATS WERE IN THE MID 90'S. HE THEN SLEPT STAYING IN THERE FOR A SHORT PERIOD OF TIME. HE THEN WOKE UP AND NEEDED TO BE PUT BACK ONTO THE AIRVO AT 10 LITERS HOLDING AT THE MID 90'S RANGE. WE ALSO WARMED HIS ROOM UP ALL THE WAY TO HELP WITH HIS CIRCULATION. WILL REPORT TO FERNY GARCIA.
--- NOTE | 2019-05-23 18:01 | NUR ---
SHIFT SUMMARY PATIENT IS PLEASANT, ALERT AND ORIENTED. HE DESATURATES WHEN HE STANDS AT THE BEDSIDE. HE DID HAVE A BEDBATH.
--- NOTE | 2019-05-23 18:19 | NUR ---
DR. SMITH TITRATED PATIENT'S AIRVO DOWN FROM 50% TO 40%.
[2019-05-24 05:37] LABS: Calcium, Blood 8.1 mg/dL (8.5-10.1); Creatinine, Blood 1.22 mg/dL (0.60-1.20); Potassium, Blood 3.4 mmol/L (3.5-5.5)
--- NOTE | 2019-05-24 05:37 | NUR ---
SHIFT SUMMARY PT IS AN 88 Y/O MALE, ADMITTED FOR PNA. HE IS A&O X 3, AND A 1-2PA DUE TO RAPID DESATTING ON STANDING OR EXERTION. PT IS CURRENTLY ON AN AIRVO, AT 50 L/MIN AND 60% O2. PT WAS TURNED DOWN TO 40 L/MIN DURING DAY SHIFT, BUT WAS DESATTING DOWN THE 81-83%. RESPIRATORY THERAPY TRIED TO PUT THE PT ON A CPAP, BUT THE PT DESATTED DOWN TO THE 70S AND WAS PUT BACK ON THE AIRVO. PT HAS MAINTAINED 91-94% ON CURRENT AIRVO SETTINGS. NO COMPLAINTS OF PAIN OR NAUSEA. VITAL SIGNS STABLE. NO ACUTE CHANGES IN PT CONDITION NOTED. PT DID NOT SLEEP VERY WELL DURING THE NIGHT. WILL CONTINUE TO MONITOR AND TREAT PER EMAR UNTIL HAND OFF TO DAY SHIFT RN
--- NOTE | 2019-05-25 04:34 | NUR ---
ALERT AND ORIENTED. VOICED DIFFICULTY SLEEPING IN BED, WAS ASSISTED TO BEDSIDE CHAIR AND HAS BEEN SLEEPING WITHOUT NOTED DIFFICULTY SINCE. CONTINUES ON AIRVO - SEE RT NOTED FOR DETAILS. IVF INFUSING AT KVO. CALL LIGHT IN REACH.
[2019-05-25 08:04] LABS: Anion Gap 6 mmol/L (6-16); Blood Urea Nitrogen 39 mg/dL (8-24); Bun/Creatinine Ratio 38.2 (12.0-20.0); CO2, Blood 34 mmol/L (21-32); Calcium, Blood 8.4 mg/dL (8.5-10.1); Chloride, Blood 94 mmol/L (98-108); Creatinine, Blood 1.02 mg/dL (0.60-1.20); Glomerular Filtration Rate >60 (60-); Glucose, Blood 252 mg/dL (70-99); Potassium, Blood 3.4 mmol/L (3.5-5.5); Sodium, Blood 134 mmol/L (136-145)
--- NOTE | 2019-05-25 17:51 | NUR ---
SHIFT SUMMARY PT UP IN RECLINER THROUGH DAY WITH 1 PERSON ASSIST WITH TRANSFER TO W/C FOR CXR AND TO USE COMMODE AND USE URINAL. NO RESP DISTRESS NOTED THROUGH DAY. REPORTS HE GENERALLY USES A RECLINER TO SLEEP IN AT HOME. HAS BEEN WEANED DOWN ON AIRVO BUT REMAINS ON AT THIS TIME.
--- NOTE | 2019-05-25 22:45 | NUR ---
PT WAS VOICING SEVERE "HEARTBURN", REQUESTED MED. CALL PLACED TO HEALTH PROGRAM MANAGER, ORDERS RECEIVED FOR A GI COCKTAIL. MED WAS ADMINISTERED. WILL REASSESS LATER. CALL LIGHT IN REACH.
--- NOTE | 2019-05-26 02:06 | NUR ---
RESTING QUIETLY AT THIS TIME. AIRVO CONTINUES AT 35% SLEEPING IN BEDSIDE LOUNGE CHAIR HE STATED THE BED IS UNCOMFORTABLE. IV ANTIBIOTICS CONTINUE. SEE MAR FOR DETAILS. CALL LIGHT IN REACH.
[2019-05-26 05:45] LABS: Anion Gap 7 mmol/L (6-16); Blood Urea Nitrogen 44 mg/dL (8-24); Bun/Creatinine Ratio 40.4 (12.0-20.0); CO2, Blood 34 mmol/L (21-32); Calcium, Blood 8.2 mg/dL (8.5-10.1); Chloride, Blood 92 mmol/L (98-108); Creatinine, Blood 1.09 mg/dL (0.60-1.20); Glomerular Filtration Rate >60 (60-); Glucose, Blood 284 mg/dL (70-99); Sodium, Blood 133 mmol/L (136-145)
--- NOTE | 2019-05-26 05:56 | NUR ---
PT DESATED TO LOW 80'S EARLIER THIS SHIFT. RT WAS NOTIFIED, 02 FEED IN TO AIRVO WAS INCREASED, UNTIL SATS BACK INTO THE 90'S. RT READJUSTED AIRFLOW LATER. SEE RT NOTATION FOR DETAILS.
[2019-05-26 07:39] LABS: BASOPHILS ABSOLUTE AUTO 0.01 K/mm3 (0.00-0.23); BASOPHILS PERCENT AUTO 0 % (0-2); EOSINOPHILS PERCENT AUTO 0 % (0-6); Hematocrit 27.5 % (37.0-53.0); Hemoglobin 8.6 g/dL (13.5-17.5); IMMATURE GRAN ABSOLUTE AUTO 0.07 K/mm3 (0.00-0.10); IMMATURE GRAN PERCENT AUTO 1 % (0-1); LYMPHOCYTES ABSOLUTE AUTO 0.88 K/mm3 (0.84-5.20); LYMPHOCYTES PERCENT AUTO 6 % (21-46); MONOCYTES ABSOLUTE AUTO 0.53 K/mm3 (0.16-1.47); MONOCYTES PERCENT AUTO 4 % (4-13); Mean Corpuscular HGB 27.9 pg (26.0-34.0); Mean Corpuscular HGB Conc 31.3 g/dL (31.5-36.5); Mean Corpuscular Volume 89 fL (80-100); Mean Platelet Volume 9.9 fL (9.1-12.4); NEUTROPHILS ABSOLUTE AUTO 13.32 K/mm3 (1.96-9.15); NEUTROPHILS PERCENT AUTO 90 % (41-73); Platelet Count 406 K/mm3 (150-400); RDW Coefficient Variation 16.5 % (11.7-14.2); RDW Standard Deviation 52.7 fL (35.1-46.3); Red Blood Cell Count 3.08 M/mm3 (4.30-5.90); White Blood Cell Count 14.81 K/mm3 (4.00-11.30)
--- NOTE | 2019-05-26 18:30 | NUR ---
PATIENT A/OX4, UP WITH SBA. VSS, ON 4-6L VIA HIGH FLOW O2. PATIENT DESATS WITH ANY ACTIVITY. CONT BIOX IN USE. PATIENT ON AIRVO AT START OF SHIFT AND IT IS NO LONGER NEEDED. TOLERATING ADA DIET. ACHS, BLOOD SUGARS REMAIN HIGH. 1200ML FLUID RESTRICTION, PATIENT VERY COMPLIANT WITH THIS. 18G IV TO L FA WNL AND SL. SR ON TELE, NO CHANGES IN RATE OR RHYTHM.
--- NOTE | 2019-05-26 20:39 | NUR ---
DEANNA IS SITTING IN BED, JUST FINISHED HIS BREATHING TREATMENT A FEW MINUTES AGO. DEANNA HAS PROGRESSED SINCE LAST TIME THIS RN HAS SEEN THE PATIENT. HE IS BREATHING BETTER ON NASAL CANNULA. SATS ARE STAYING IN THE 90'S. STATES COUGH HAS ALSO IMPROVED. STILL TALKS ABOUT WANTING TO GO HOME. DENIES ANY NEEDS AT THIS TIME, CALL LIGHT IN REACH.
--- NOTE | 2019-05-26 21:46 | NUR ---
IV FLUSHED THEN SL. ASSISTED TO STAND AT BEDSIDE FOR URINAL USE. VOID 275ML OF CLEAR YELLOW URINE, ASSISTED BACK TO BED, SATS DROPPED TO 87%, RECOVERY WAS WITH IN A MIN. CALL LIGHT GIVEN, BED ALARM ON.
--- NOTE | 2019-05-27 01:05 | NUR ---
DEANNA ASLEEP IN BED, WITH NASAL CANNULA ON, SATS ARE IN THE 90'S AND HOLDING. NO SIGN OF DISTRESS NOTED. CALL LIGHT IN REACH.
--- NOTE | 2019-05-27 01:22 | NUR ---
DEANNA WAS UP WITH RETAIL WAREHOUSE ASSOCIATE USING URINAL. SATS DROPPED TO 70'S. CONTINUOUS BIOX SOUNDING, RT WALKED BY AT THIS TIME. TURNED OXYGEN UP TO 6 LITERS IT WAS TAKING HIM AWHILE TO RECOVER TONIGHT. REPOSITIONED UP IN BED, AND KEPT HIM ON 6 LITERS AT THIS TIME.
--- NOTE | 2019-05-27 02:58 | NUR ---
DEANNA IS SLEEPING, OXYGEN ON 6 LITERS SATS ARE 97%, NO SIGN OF DISTRESS. CALL LIGHT IN REACH.
[2019-05-27 05:52] LABS: Anion Gap 4 mmol/L (6-16); Blood Urea Nitrogen 37 mg/dL (8-24); Bun/Creatinine Ratio 34.6 (12.0-20.0); CO2, Blood 41 mmol/L (21-32); Calcium, Blood 8.1 mg/dL (8.5-10.1); Chloride, Blood 92 mmol/L (98-108); Creatinine, Blood 1.07 mg/dL (0.60-1.20); Glomerular Filtration Rate >60 (60-); Glucose, Blood 222 mg/dL (70-99); Potassium, Blood 3.4 mmol/L (3.5-5.5); Sodium, Blood 137 mmol/L (136-145)
--- NOTE | 2019-05-27 06:11 | NUR ---
SHIFT SUMMARY: DEANNA HAS BEEN STABLE THROUGHOUT THE SHIFT. VS WNL. LUNG SOUNDS DIMINISHED WITH SATS MAINTAINING IN THE 90'S. HE DOES HAVE OCCATIONAL DROPS WHEN HE GETS UP TO USE THE URINAL DROPPING HIM TO MID 80'S. HE DID HAVE ONE DROP TO THE 70'S THIS SHIFT, AND HAD A HARD TIME RECOVERING, THEREFORE RT BUMPED HIM UP TO 6 LITERS OF O2, HE GOT BACK TO HIS NORMAL AND WAS TURNED DOWN TO 4 LITERS. NO OTHER ACUTE CHANGES OCCURED THIS SHIFT. CALL LIGHT REMAINED WITH IN REACH AND USED APPROPRIATLY.
--- NOTE | 2019-05-27 17:54 | NUR ---
PT ALERT AND ORIENTED THROUGHOUT THIS SHIFT. PT'S SPOUSE IN THE ROOM MUCH OF THE AFTERNOON. PT COOPERATIVE WITH CARE THIS SHIFT. PT UP IN THE BEDSIDE CHAIR MUCH OF THIS SHIFT. PT ON 4L O2, REDUCED FROM AIRVO, AND WITHOUT RESPIRATORY DISTRESS. PT CURRENTLY UP IN CHAIR EATING DINNER.
--- NOTE | 2019-05-27 21:02 | NUR ---
GLUCOSE 377; DR WOOD NOTIFIED WITH ORDERS HUMALOG 12 UNITS NOW.
--- NOTE | 2019-05-28 04:39 | NUR ---
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
--- NOTE | 2019-05-28 17:04 | NUR ---
PT ALERT, ORIENTED, AND COOPERATIVE WITH CARE THROUGHOUT THIS SHIFT. PT REMAINS ON 4L O2. PT UP TO AMBULATE IN THE ROOM WITH THE FWW MULTIPLE TIMES THIS SHIFT. 02 SATS DOWN TO HIGH 70'S TO LOW 80'S WITH AMBULATION OF 20-30 FEET. PT 02 STEADY IN THE 90'S WHEN AT REST. PT'S SPOUSE IN THE ROOM THIS AM AND EARLY AFTERNOON. PT USES CALL LIGHT APPROPRIATELY FOR ASSISTANCE TO STAND TO USE THE URINAL. PT IN CHAIR THROUGH MOST OF THIS SHIFT. PT CURRENTLY UP IN CHAIR WATCHING TELEVISION.
--- NOTE | 2019-05-28 19:41 | NUR ---
PT SITTING IN LOUNGE CHAIR AND VOICED THAT HE DESIRES TO SLEEP HERE TONIGHT AGAIN; CHAIR ALARM APPLIED.
--- NOTE | 2019-05-28 20:39 | NUR ---
CBG 309; DR WOOD NOTIFIED WITH ORDERS.
--- NOTE | 2019-05-29 03:38 | NUR ---
SHIFT SUMMARY: 88 Y/O MALE SLEPT COMFORTABLY ENTIRE SHIFT IN BEDSIDE LOUNGE CHAIR; DENIES PAIN OR NAUSEA; EAGER TO RETURN HOME TODAY; TELEMETRY REFLECTS NSR WITH PAC AND HEART RATE 66; WEARING O2 AT 4L/M PER NASAL CANNULA; CHAIR ALARM APPLIED WITH CALL LIGHT AT SIDE; ALERT AND ORIENTED X 4.
[2019-05-29 05:31] LABS: Anion Gap 2 mmol/L (6-16); Blood Urea Nitrogen 33 mg/dL (8-24); Bun/Creatinine Ratio 31.4 (12.0-20.0); CO2, Blood 41 mmol/L (21-32); Calcium, Blood 8.4 mg/dL (8.5-10.1); Chloride, Blood 92 mmol/L (98-108); Creatinine, Blood 1.05 mg/dL (0.60-1.20); Glomerular Filtration Rate >60 (60-); Glucose, Blood 131 mg/dL (70-99); Magnesium, Blood 2.3 mg/dL (1.6-2.4); Potassium, Blood 3.7 mmol/L (3.5-5.5); Sodium, Blood 135 mmol/L (136-145)
--- NOTE | 2019-05-29 16:55 | NUR ---
PT IS A/OX3, PLEASANT AND COOPERATIVE, THE PT IS UP WITH MINIMAL ASSIST, THE PT HAS BEEN UP IN THE CHAIR T/O THE DAY, THE PT IS ON 4L/MIN O2 AT REST AND 6L/MIN O2 VIA NC WITH ACTIVITY, PHYSICAL THERAPIST WORKED WITH THE PT TODAY, THE PS WAS AT THE BEDSIDE FOR MOST OF THE DAY, PT DENIED ANY PAIN, CALL LIGHT INR EACH WILL CONTINUE TO MONITOR AND ASSESS FOR CHANGES
[2019-05-30 05:44] LABS: Anion Gap 3 mmol/L (6-16); Blood Urea Nitrogen 35 mg/dL (8-24); Bun/Creatinine Ratio 30.2 (12.0-20.0); CO2, Blood 39 mmol/L (21-32); Calcium, Blood 8.1 mg/dL (8.5-10.1); Chloride, Blood 96 mmol/L (98-108); Creatinine, Blood 1.16 mg/dL (0.60-1.20); Glomerular Filtration Rate >60 (60-); Glucose, Blood 109 mg/dL (70-99); Magnesium, Blood 2.2 mg/dL (1.6-2.4); Potassium, Blood 4.2 mmol/L (3.5-5.5); Sodium, Blood 138 mmol/L (136-145)
--- NOTE | 2019-05-30 06:38 | NUR ---
RESTING QUIETLY AT INTERVALS, AWAKE FOR BATHROOM NEEDS. CONTINUOUS O2 SATS - 90'S AT 4 TO 5L/MIN NC. NO COMPLAINTS OF PAIN OR SOB. CALL LIGHT IN REACH.
[2019-05-30] MEDS ORDERED: Culturelle1 CAP PO (15:14)
[2019-05-30] MEDS ORDERED: POTCHL20ER PO (15:15)
[2019-05-30] MEDS ORDERED: PRED20 PO (15:17)
--- NOTE | 2019-05-30 15:49 | NUR ---
PATIENT WAS SEEN BY DR. MARES THIS AFTERNOON. DR. MARES DECIDED HE COULD NOT DISCHARGE THE PATIENT. THE PATIENT DECIDED HE WANTED TO LEAVE AGAINST MEDICAL ADVICE. THE RISKS OF LEAVING AMA WERE EXPLAINED TO THE PATIENT, THOSE BEING POSSIBLE WORSENING CONDITION AND . THE PATIENT'S FAMILY AND FRIENDS STRONGLY ENCOURAGED HIM TO STAY. THE PATIENT'S IV WAS PULLED BEFORE HE LEFT AMA. THE PATIENT'S FRIEND PUSHED HIM IN A WHEELCHAIR OUT OF THE ROOM AND OFF THE UNIT. A PRESCRIPTION FOR [facility] WAS GIVEN TO THE PATIENT.
--- NOTE | 2019-05-30 15:55 | NUR ---
PATIENT DISCHARGED 05/30/19 AT 1547
== END 2019-05-30 15:40 | disposition home or self-care (01) | DRG 871 ==
LOC: ER 18:01 → MEDS 21:47 → ENPENDDIS 05-30 15:24 → MEDS 05-30 15:40
PROVIDERS: Emergency Medicine; Hospitalist; Internal Medicine; Internal Medicine Critical Care Medicine; Nurse Practitioner Acute Care; ADMIT Internal Medicine
DX: A41.9 Sepsis, unspecified organism (principal); J18.9 Pneumonia, unspecified organism; J96.21 Acute and chronic respiratory failure with hypoxia; I50.33 Acute on chronic diastolic (congestive) heart failure; I24.8 Other forms of acute ischemic heart disease; J44.0 Chronic obstructive pulmonary disease with (acute) lower respiratory infection; Z99.81 Dependence on supplemental oxygen; Z98.52 Vasectomy status; Z79.82 Long term (current) use of aspirin; Z79.84 Long term (current) use of oral hypoglycemic drugs; Z85.828 Personal history of other malignant neoplasm of skin; I25.10 Atherosclerotic heart disease of native coronary artery without angina pectoris; Z87.891 Personal history of nicotine dependence; E87.5 Hyperkalemia; G47.33 Obstructive sleep apnea (adult) (pediatric); J84.10 Pulmonary fibrosis, unspecified; D50.9 Iron deficiency anemia, unspecified; E87.6 Hypokalemia
CPT/HCPCS: 36415; 36430; 71045; 71046; 80048; 80053; 82728; 82947; 83540; 83550; 83735; 83880; 84145; 84484; 85025; 85027; 86850; 86900; 86901; 86923; 87040; 87070; 87205; 93005; 93010; 94640; 94660; 94761; 94762; 96365; 97110; 97116; 97161; 97530; 99285-25; A9270; J0696; J1650; J1815; J1940; J2916; J2930; J7050; J7512; P9016

== ENCOUNTER 2019-06-08 17:22 | Observation (INO) | payer OTHER, MEDICARE ==
[~2019-06-08] VITALS: Ht 172.7 cm; Wt 79.4 kg
[~2019-06-08 17:22] MED LIST changes: +Culturelle1 CAP PO; +FURO20 PO; +OMEP20ER PO; +POTCHL20ER PO; +PRED20 PO
[2019-06-08 17:56] LABS: BASOPHILS ABSOLUTE AUTO 0.02 K/mm3 (0.00-0.23); BASOPHILS PERCENT AUTO 0 % (0-2); EOSINOPHILS ABSOLUTE AUTO 0.18 K/mm3 (0.00-0.68); EOSINOPHILS PERCENT AUTO 1 % (0-6); Hematocrit 36.1 % (37.0-53.0); Hemoglobin 11.2 g/dL (13.5-17.5); IMMATURE GRAN ABSOLUTE AUTO 0.12 K/mm3 (0.00-0.10); IMMATURE GRAN PERCENT AUTO 1 % (0-1); LYMPHOCYTES ABSOLUTE AUTO 2.47 K/mm3 (0.84-5.20); LYMPHOCYTES PERCENT AUTO 12 % (21-46); MONOCYTES ABSOLUTE AUTO 0.76 K/mm3 (0.16-1.47); MONOCYTES PERCENT AUTO 4 % (4-13); Mean Corpuscular HGB 28.6 pg (26.0-34.0); Mean Platelet Volume 9.6 fL (9.1-12.4); NEUTROPHILS ABSOLUTE AUTO 17.64 K/mm3 (1.96-9.15); NEUTROPHILS PERCENT AUTO 83 % (41-73); Platelet Count 315 K/mm3 (150-400); RDW Coefficient Variation 17.8 % (11.7-14.2); RDW Standard Deviation 59.9 fL (35.1-46.3); Red Blood Cell Count 3.92 M/mm3 (4.30-5.90); White Blood Cell Count 21.19 K/mm3 (4.00-11.30)
[2019-06-08 18:01] LABS: Mean Corpuscular Volume 92 fL (80-100)
[2019-06-08 18:15] LABS: International Normalized Ratio 1.04; Prothrombin Time Results 11.1 Sec (9.7-11.5)
[2019-06-08 18:31] LABS: Alanine Aminotransfer (ALT/SGP 28 U/L (12-78); Albumin/Globulin Ratio 0.7 (0.8-1.8); Alk Phos 121 U/L (50-136); Anion Gap 7 mmol/L (6-16); Aspartate Aminotrans (AST/SGOT 16 U/L (12-37); Bilirubin, Total 0.6 mg/dL (0.1-1.0); Blood Urea Nitrogen 30 mg/dL (8-24); Bun/Creatinine Ratio 19.4 (12.0-20.0); CO2, Blood 30 mmol/L (21-32); Calcium, Blood 9.1 mg/dL (8.5-10.1); Chloride, Blood 99 mmol/L (98-108); Creatinine, Blood 1.55 mg/dL (0.60-1.20); Globulin, Blood 4.6 g/dL (2.2-4.0); Glomerular Filtration Rate 45 (60-); Glucose, Blood 168 mg/dL (70-99); Potassium, Blood 4.1 mmol/L (3.5-5.5); Sodium, Blood 136 mmol/L (136-145); Total Protein, Blood 7.6 g/dL (6.4-8.2)
[2019-06-08 18:33] LABS: Troponin I <0.015 ng/mL (0.000-0.040)
[2019-06-08] MEDS ORDERED: Glucophage1000 MG PO (20:13)
[2019-06-08] MEDS ORDERED: B-121000 MC3 PO (20:14)
--- NOTE | 2019-06-09 04:27 | NUR ---
SHIFT SUMMARY: PT IS ALERT AND ORIENTED. PT IS CALM AND COOPERATIVE WITH CARE. PT CALLS APPROPRIATELY. PT IS A ONE ASSIST WITH A FWW. PT ON 6 L O2 WHICH IS NEAR HIS BASELINE. PT REPORTS SOB WITH MINIMAL EXERTION. PT DENIES PAIN, NAUSEA, AND VOMITING. PT SLEPT INTERMITTENTLY THROUGHOUT THE NIGHT. NO ACUTE CHANGES OR COMPLICATIONS THIS SHIFT. WILL REPORT TO DAY NURSE.
[2019-06-09 04:53] LABS: BASOPHILS ABSOLUTE AUTO 0.01 K/mm3 (0.00-0.23); BASOPHILS PERCENT AUTO 0 % (0-2); EOSINOPHILS PERCENT AUTO 0 % (0-6); Hematocrit 27.7 % (37.0-53.0); Hemoglobin 8.8 g/dL (13.5-17.5); IMMATURE GRAN ABSOLUTE AUTO 0.05 K/mm3 (0.00-0.10); IMMATURE GRAN PERCENT AUTO 0 % (0-1); LYMPHOCYTES ABSOLUTE AUTO 0.93 K/mm3 (0.84-5.20); LYMPHOCYTES PERCENT AUTO 8 % (21-46); MONOCYTES ABSOLUTE AUTO 0.22 K/mm3 (0.16-1.47); MONOCYTES PERCENT AUTO 2 % (4-13); Mean Corpuscular HGB 28.9 pg (26.0-34.0); Mean Corpuscular HGB Conc 31.8 g/dL (31.5-36.5); Mean Corpuscular Volume 91 fL (80-100); NEUTROPHILS ABSOLUTE AUTO 11.13 K/mm3 (1.96-9.15); NEUTROPHILS PERCENT AUTO 90 % (41-73); Platelet Count 263 K/mm3 (150-400); RDW Coefficient Variation 18.2 % (11.7-14.2); RDW Standard Deviation 60.4 fL (35.1-46.3); Red Blood Cell Count 3.04 M/mm3 (4.30-5.90); White Blood Cell Count 12.34 K/mm3 (4.00-11.30)
[2019-06-09 05:10] LABS: Bun/Creatinine Ratio 22.8 (12.0-20.0); Calcium, Blood 8.2 mg/dL (8.5-10.1); Creatinine, Blood 1.23 mg/dL (0.60-1.20); Potassium, Blood 4.4 mmol/L (3.5-5.5)
--- NOTE | 2019-06-09 16:44 | NUR ---
Shift Summary A/Ox3, pleasant and cooperative, calls appropriately for needs. SBA c FWW to bathroom. 6L O2 via NC with humidifier, saturations remains well above 90%. No acute concerns at this time. Pt had a shower today, moved bowels, and has been continent. Plan is to discharge home tomorrow with - [facility]. Denies pain. Will continue to monitor until report given.
--- NOTE | 2019-06-09 17:22 | NUR ---
Met wit patient and his to review hopsice at his request. Pt is [facility]. Pt has a strong family support system. Review of what hospice offeres and limits of service. Review of symptom managment and the philosophy of hospice. Pt feels this is his best choice since he has been trying to optimize his health so he can have cardiac surgey. Pt has lost weight and had multiple hospital visits and general decline. Pt kps score is 30%. [facility] notified and hospice consult placed. pt has polst is dnr.
--- NOTE | 2019-06-09 21:09 | NUR ---
CBG 329; MORAIMA CRAWLEY NOTIFIED WITH NO ORDERS RECEIVED; DESIRES TO LEAVE ALONE AND NOT COVER AT THIS TIME; MAC BANDA RN, CHARGE NURSE ADVISED.
--- NOTE | 2019-06-10 03:17 | NUR ---
06/09/191999 RESTING COMFORTABLY IN BED; POSSIBLE DISCHARGE AM TO HOSPICE WITH PATIENT IN AGREEMENT.
--- NOTE | 2019-06-10 04:19 | NUR ---
SHIFT SUMMARY: 88 Y/O MALE RESTED COMFORTABLY IN BED ALL SHIFT WHILE WEARING O2 AT 6L/M PER NASAL CANNULA; HAPPY AND COOPERATIVE; DENIES PAIN OR NAUSEA; UP BATHROOM X 1 ASSIST VIA WALKER WITH GAIT SLOW AND STEADY; LUNG SOUNDS ARE CRACKLES THROUGHOUT, NO COUGH NOTED; ALERT AND ORIENTED X 4; BED ALARM APPLIED, BED LOW POSITION WITH CALL LIGHT AT SIDE.
[2019-06-10 05:47] LABS: BASOPHILS ABSOLUTE AUTO 0.01 K/mm3 (0.00-0.23); BASOPHILS PERCENT AUTO 0 % (0-2); EOSINOPHILS ABSOLUTE AUTO 0.13 K/mm3 (0.00-0.68); EOSINOPHILS PERCENT AUTO 1 % (0-6); Hematocrit 28.8 % (37.0-53.0); Hemoglobin 8.8 g/dL (13.5-17.5); IMMATURE GRAN PERCENT AUTO 1 % (0-1); LYMPHOCYTES ABSOLUTE AUTO 1.98 K/mm3 (0.84-5.20); LYMPHOCYTES PERCENT AUTO 13 % (21-46); MONOCYTES PERCENT AUTO 3 % (4-13); Mean Corpuscular HGB 28.3 pg (26.0-34.0); Mean Corpuscular HGB Conc 30.6 g/dL (31.5-36.5); Mean Corpuscular Volume 93 fL (80-100); Mean Platelet Volume 10.2 fL (9.1-12.4); NEUTROPHILS PERCENT AUTO 82 % (41-73); Platelet Count 269 K/mm3 (150-400); RDW Coefficient Variation 17.9 % (11.7-14.2); RDW Standard Deviation 61.5 fL (35.1-46.3); Red Blood Cell Count 3.11 M/mm3 (4.30-5.90); White Blood Cell Count 14.82 K/mm3 (4.00-11.30)
[2019-06-10 06:08] LABS: Albumin, Blood 2.3 g/dL (3.4-5.0); Anion Gap 7 mmol/L (6-16); Blood Urea Nitrogen 27 mg/dL (8-24); Bun/Creatinine Ratio 25.2 (12.0-20.0); CO2, Blood 28 mmol/L (21-32); Calcium, Blood 8.3 mg/dL (8.5-10.1); Chloride, Blood 101 mmol/L (98-108); Creatinine, Blood 1.07 mg/dL (0.60-1.20); Glomerular Filtration Rate >60 (60-); Glucose, Blood 345 mg/dL (70-99); Phosphorus, Blood 3.1 mg/dL (2.5-4.9); Potassium, Blood 4.6 mmol/L (3.5-5.5); Sodium, Blood 136 mmol/L (136-145)
[2019-06-10] MEDS ORDERED: ALBU2.5V5 INH (12:56)
[2019-06-10] MEDS ORDERED: CLON.5 PO (12:57)
--- NOTE | 2019-06-10 15:54 | NUR ---
PT DISCHARGED TO HOME WITH HOSPICE AT 1430 WITH FAMILY TO TRANSPORT. PT HAD ALL PERSONAL BELONGINGS COLLECTED. PAPERWORK WAS REVEIWED AND EDUCATIONAL MATERIAL SENT WITH PT. [facility]DSCRIPTS WERE SENT WITH PT WELL. HOSPICE TO SET UP CARE WEDNESDAY MORNING. PT DENIED ANY PAIN AND HAD HOME O2 TO TAKE WITH HIM FOR HIS TRIP HOME. PT AOX4 AND COOPERATIVE OF ALL CARE TODAY, NO DISTRESS NOTED.
== END 2019-06-10 14:55 | disposition hospice, home (50) ==
LOC: ER 17:22 → MEDS 17:24
PROVIDERS: Emergency Medicine; Family Medicine; ADMIT Hospitalist
DX: J44.9 Chronic obstructive pulmonary disease, unspecified (principal); J96.11 Chronic respiratory failure with hypoxia; J84.9 Interstitial pulmonary disease, unspecified; I50.32 Chronic diastolic (congestive) heart failure; I27.20 Pulmonary hypertension, unspecified; F41.9 Anxiety disorder, unspecified; D72.829 Elevated white blood cell count, unspecified; E11.9 Type 2 diabetes mellitus without complications; I25.10 Atherosclerotic heart disease of native coronary artery without angina pectoris; I35.0 Nonrheumatic aortic (valve) stenosis; G47.33 Obstructive sleep apnea (adult) (pediatric); E78.5 Hyperlipidemia, unspecified; G89.29 Other chronic pain; M54.9 Dorsalgia, unspecified; D64.9 Anemia, unspecified; Z87.891 Personal history of nicotine dependence; Z66 Do not resuscitate; Z79.51 Long term (current) use of inhaled steroids; Z79.82 Long term (current) use of aspirin; Z79.84 Long term (current) use of oral hypoglycemic drugs; Z79.891 Long term (current) use of opiate analgesic; Z79.899 Other long term (current) drug therapy; Z99.81 Dependence on supplemental oxygen; Z99.89 Dependence on other enabling machines and devices; Z85.828 Personal history of other malignant neoplasm of skin; Z95.5 Presence of coronary angioplasty implant and graft; Z51.5 Encounter for palliative care; Z87.01 Personal history of pneumonia (recurrent)
CPT/HCPCS: 36415; 71045; 80048; 80053; 80069; 82947; 83605; 83880; 84484; 85025; 85610; 87040; 90686; 93005; 93010; 94640; 94644; 94760; 96365; 96372; 96375; 99285-25; G0378; J0456; J0696; J1100; J1644; J1940; J7050; J7512